=== PATIENT | female | born 1935 | race Caucasian/White ===

== ENCOUNTER → 2017-06-21 | Outpatient (CLI) | payer BC, MEDICARE ==
[~2017-06-21] MED LIST: ONGL5TAB PO; PANT40TA3 PO; PIOG15TA5 PO; PRAV20TA2 PO; VITA1000 PO; VITACAP7 PO
[2017-06-21 10:08] LABS: AUTOMATED NEUTROPHIL # 3.9 TH/MM3 (1.8-7.7); BASOPHIL % 0.5 % (0.0-2.0); EOSINOPHIL # 0.1 TH/MM3 (0-0.4); EOSINOPHIL % 1.3 % (0.0-4.0); HEMOGLOBIN 13.5 GM/DL (11.6-15.3); LYMPH % 26.7 % (9.0-44.0); LYMPHOCYTE # 1.6 TH/MM3 (1.0-4.8); MEAN CELL VOLUME 94.1 FL (80.0-100.0); MEAN CORPUSCULAR HEMOGLOBIN 31.8 PG (27.0-34.0); MEAN CORPUSCULAR HGB CONC 33.8 % (32.0-36.0); MEAN PLATELET VOLUME 8.8 FL (7.0-11.0); MONO % 7.5 % (0.0-8.0); MONOCYTE # 0.5 TH/MM3 (0-0.9); PLATELET COUNT 209 TH/MM3 (150-450); RED BLOOD COUNT 4.25 MIL/MM3 (4.00-5.30); WHITE BLOOD COUNT 6.1 TH/MM3 (4.0-11.0)
[2017-06-21 10:13] LABS: BILIRUBIN, URINE NEG (NEG); BLOOD, URINE NEG (NEG); GLUCOSE,URINE TRACE mg/dL (NEG); KETONE, URINE NEG (NEG); MUCUS URINE FEW /lpf (OCC); NITRITE,URINE NEG (NEG); SQUAMOUS EPITHELIAL CELL URINE 1 /hpf (0-5); URINE COLOR YELLOW (YELLW/STRAW); URINE LEUKOCYTE ESTERASE NEG (NEG)
[2017-06-21 10:16] LABS: PROTHROMBIN TIME - PATIENT 10.3 SEC (9.8-11.6)
[2017-06-21 10:29] LABS: WESTERGREN SEDIMENTATION RATE 10 mm/hr (0-30)
[2017-06-21 10:40] LABS: ALBUMIN 3.4 GM/DL (3.4-5.0); AST (GOT) 16 U/L (15-37); BICARBONATE 31.9 MEQ/L (21.0-32.0); BLOOD UREA NITROGEN 16 MG/DL (7-18); CALCIUM 8.9 MG/DL (8.5-10.1); CHLORIDE 105 MEQ/L (98-107); GLOMERULAR FILTRATION RATE 60 ML/MIN (>89); GLUCOSE,FASTING 205 MG/DL (74-99); SODIUM (NA) 143 MEQ/L (136-145)
[2017-06-21 10:43] LABS: ALKALINE PHOSPHATASE 78 U/L (45-117); ALT (GPT) 17 U/L (10-53); TOTAL BILIRUBIN ADULT 0.4 MG/DL (0.2-1.0); TOTAL PROTEIN 7.2 GM/DL (6.4-8.2)
--- NOTE | 2017-06-21 11:46 | RADRPT ---
EXAM DATE/TIME: 06/21/2017 11:21 [facility] COMPARISON: No previous studies available for comparison. INDICATIONS : Pre op right hip surgery. MEDICAL HISTORY : None. SURGICAL HISTORY : None. ENCOUNTER: Initial ACUITY: 1 day PAIN SCORE: 0/10 LOCATION: Bilateral chest FINDINGS: PA and lateral views of the chest demonstrate the lungs to be symmetrically aerated without evidence of mass, infiltrate or effusion. The cardiomediastinal contours are unremarkable. Degenerative merlos es are noted throughout the thoracic spine. CONCLUSION: 1. No acute cardiopulmonary disease. 2. Degenerative changes throughout the thoracic spine. Perfecto Escalona MD on June 21, 2017 at 11:42 Board Certified Radiologist. This report was verified electronically.
--- NOTE | 2017-06-21 13:35 | EKG ---
Date Performed: 06/21/2017 Time Performed: 09:36:35 PTAGE: 82 years EKG: Sinus rhythm MODERATE ST DEPRESSION ABNORMAL ECG NO PREVIOUS TRACING DOCTOR: Curt Bond Interpretating Date/Time 06/21/2017 13:34:39
== END ==
LOC: CPRE 09:09
PROVIDERS: ATTEND Orthopaedic Surgery Sports Medicine
DX: Z01.810 Encounter for preprocedural cardiovascular examination (principal); Z01.812 Encounter for preprocedural laboratory examination; Z01.818 Encounter for other preprocedural examination; M25.50 Pain in unspecified joint; M16.11 Unilateral primary osteoarthritis, right hip; R94.31 Abnormal electrocardiogram [ECG] [EKG]; Z96.60 Presence of unspecified orthopedic joint implant; Z79.01 Long term (current) use of anticoagulants
CPT/HCPCS: 36415; 71046; 80053; 81001; 85025; 85610; 85652; 85730; 93005

== ENCOUNTER 2017-07-08 06:44 | Inpatient (IN) | payer MEDICARE ==
[~2017-07-08] VITALS: Ht 167.6 cm; Wt 72.8 kg
[2017-07-08] MEDS ORDERED: ASPI81CH6 CHEW (06:52)
[2017-07-08] MEDS ORDERED: HYDR-3288 PO (06:52)
[2017-07-08] MEDS ORDERED: ACETAMINOPHEN/HYDROcodone 325 MG/10 MG TAB PO PRN (07:00)
[2017-07-08] MEDS ORDERED: diphenhydrAMINE HCL 50 MG/ML VIAL IV PUSH PRN (07:00)
[2017-07-08] MEDS ORDERED: MORPHINE SULFATE 4 MG/ML INJ IV PUSH PRN (07:00)
[2017-07-08] MEDS ORDERED: ZOLPIDEM TARTRATE 5 MG TAB PO PRN (07:00)
[2017-07-08] MEDS ORDERED: Post-op Orders (for Pharmacy) XX ONE (07:00)
[2017-07-08] MEDS ORDERED: SODIUM CHLORID 0.9% 500 ML IV PRN (07:45)
[2017-07-08] MEDS ORDERED: CHLORHEXIDINE GLUCONATE 4% SOLN 120 ML BTL TOPICAL SCH (07:45)
[2017-07-08] MEDS ORDERED: ceFAZolin 2 GM PREMIX 50 ML IV SCH (07:45)
[2017-07-08] MEDS ORDERED: LACTATED RINGER'S 1000 ML IV PRN (07:45)
[2017-07-08] MEDS ORDERED: TRANEXAMIC PERI-ARTICULAR 3,000 MG/NS 100 ML P-ARTICULR SCH ×2 (07:45)
[2017-07-08] MEDS ORDERED: SODIUM CHLORIDE 0.9% IV SCH (07:45)
[2017-07-08] MEDS ORDERED: POVIDONE IODINE 7.5% SCRUB 118 ML BOTTLE TOPICAL SCH (07:45)
[2017-07-08] MEDS ORDERED: EXPAREL PERI-ARTICULAR INJECTION (TOTAL VOL. 60 ML) P-ARTICULR SCH ×2 (07:45)
[2017-07-08] MEDS ORDERED: TRANEXAMIC ACID IV SCH (07:45)
[2017-07-08] MEDS ORDERED: DEXAMETHASONE SOD PHOS 20 MG/5 ML VIAL IV PUSH ONE (07:45)
[2017-07-08] MEDS ORDERED: VANCOMYCIN 1000 MG/NS 250 ML (for <70 kg) IV SCH ×2 (07:45)
[2017-07-08] MEDS ORDERED: METOPROLOL TARTRATE 25 MG TAB PO PRN (07:45)
[2017-07-08] MEDS ORDERED: CHLORHEXIDINE GLUCONATE 2 % 1 PACK (2 CLOTHS) TOPICAL PRN (07:45)
[2017-07-08] MEDS ORDERED: POVIDONE IODINE 5% (ANTISEPSIS KIT) 4 APPLICATIONS EACH NARE PRN (07:45)
--- NOTE | 2017-07-08 08:27 | PD.CONS ---
HPI Service [facility] Consult Requested By Reason for Consult medical management Primary Care Physician Tammy Walker DO Diagnoses: History of Present Illness patient is a 82 y/o female with history of osteoarthritis, diabetes mellitus and dyslipidemia who's been admitted for right total hip arthroplasty. at the time of my evaluation she was resting comfortably with no distress, pain or any other complaints. Review of Systems Constitutional: DENIES: Fever, Weight loss, Chills, Night Sweats Eyes: DENIES: Blurred vision, Diplopia, Vision loss, Double Vision Ears, nose, mouth, throat: DENIES: Tinnitus, Vertigo, Throat pain, Epistaxis Respiratory: DENIES: Apneas, Cough, Snoring, Wheezing, Hemoptysis, Sputum production, Shortness of breath Cardiovascular: DENIES: Chest pain, Palpitations, Syncope, Dyspnea on Exertion , PND, Lower Extremity Edema, Orthopnea, Claudication Gastrointestinal: DENIES: Abdominal pain, Black stools, Bloody stools, Constipation, Diarrhea, Nausea, Vomiting, Difficulty Swallowing, Anorexia Genitourinary: DENIES: Urinary frequency, Urgency, Hematuria, Dysuria Musculoskeletal: DENIES: Joint pain, Muscle aches, Stiffness, Joint Swelling Integumentary: DENIES: Rash Neurologic: DENIES: Abnormal gait, Headache, Localized weakness, Paresthesias, Seizures, Speech Problems, Tremor, Poor Balance Psychiatric: DENIES: Anxiety, Confusion, Mood changes, Depression, Hallucinations, Agitation, Suicidal Ideation, Homicidal Ideation, Delusions Past Family Social History Allergies: Coded Allergies: No Known Allergies (Unverified , 06/21/17) Past Medical History diabetes mellitus/ dyslipidemia/osteoarthritis Past Surgical History tonsillectomy/ knee replacement/ hysterectomy Reported Medications actos/Onglyza/pravastatin/aspirin/ cholecalciferol/protonix/norco Active Ordered Medications Inpatient Medications Acetaminophen/ Hydrocodone Bitart (Smith 10-325 Mg) 2 tab Q6H PRN PO PAIN SCALE 5 TO 10; Start 07/08/17 at 07:00 Bupivacaine Liposome 20 ml/ Sodium Chloride 60 ml @ 120 mls/hr ONCE P-ARTICULR ; Start 07/08/17 at 07:45; Stop 07/09/17 at 07:44 Cefazolin Sodium 1000 mg/Sodium Chloride 100 ml @ 200 mls/hr Q6H IV ; Start at 07:00; Stop 07/08/17 at 19:29; Status UNV Cefazolin Sodium/ Dextrose 50 ml @ 100 mls/hr FINAL INSPECTOR PAPER IV ; Start 07/08/17 at 07:45; Stop 07/11/17 at 07:44 Chlorhexidine Gluconate (Chlorhexidine 2% Cloth) 3 pack FINAL INSPECTOR PAPER PRN TOPICAL SEE LABEL COMMENTS; Start 07/08/17 at 07:45; Stop 07/11/17 at 07:44 Chlorhexidine Gluconate (Hibiclens 4% Top Soln) 1 applic ONCE TOPICAL ; Start at 07:45; Stop 07/11/17 at 07:44 Dexamethasone Sodium Phosphate (Decadron Inj) 10 mg ONCE ONCE IV PUSH ; Start 07/08/17 at 07:45; Stop 07/08/17 at 07:46; Status DC Diphenhydramine HCl (Benadryl Inj) 25 mg Q6H PRN IV PUSH ITCHING; Start at 07:00; Status UNV Docusate Sodium (Colace) 100 mg BID PO ; Start 07/09/17 at 21:00 Enoxaparin Sodium (Lovenox Inj) 40 mg Q24H SQ ; Start 07/08/17 at 07:00; Stop at 07:01; Status UNV Lactated Ringer's 1,000 ml @ 30 mls/hr Q24H PRN IV SEE LABEL COMMENTS; Start at 07:45; Stop 07/11/17 at 07:44 Metoprolol Tartrate (Lopressor) 25 mg FINAL INSPECTOR PAPER PRN PO SEE LABEL COMMENTS; Start 07/08/17 at 07:45; Stop 07/11/17 at 07:44 Miscellaneous Information (Misc Post-op Orders (for Pharmacy)) STAT ONCE XX ; Start 07/08/17 at 07:00; Stop 07/08/17 at 07:01; Status UNV Morphine Sulfate (Morphine Inj) 3 mg Q3H PRN IV PUSH Pain >7 when off TAG MARKER; Start 07/08/17 at 07:00 Multivitamins/ Minerals Therapeutic (Theragran M Tab) 1 tab BID PO ; Start 07/09 at 21:00; Stop 09/07/17 at 20:59 Non-Formulary Medication 5 mg DAILY PO ; Start 07/08/17 at 09:00; Status UNV Ondansetron HCl (Zofran Inj) 4 mg Q6H PRN IVP NAUSEA OR VOMITING; Start at 07:00 Pantoprazole Sodium (Protonix) 40 mg DAILY PO ; Start 07/08/17 at 09:00 Pioglitazone HCl (Actos) 15 mg DAILY PO ; Start 07/08/17 at 09:00 Povidone Iodine (Betadine 5% Antisepsis Kit) 1 applic FINAL INSPECTOR PAPER PRN EACH NARE SEE LABEL COMMENTS; Start 07/08/17 at 07:45; Stop 07/11/17 at 07:44 Povidone Iodine (Betadine 7.5% Scrub) 1 applic ONCE TOPICAL ; Start 07/08/17 at 07:45; Stop 07/11/17 at 07:44 Pravastatin Sodium (Pravachol) 20 mg DAILY PO ; Start 07/08/17 at 09:00 Sodium Chloride 500 ml @ 30 mls/hr [id number] PRN IV SEE LABEL COMMENTS; Start at 07:45; Stop 07/11/17 at 07:44 Tranexamic Acid 1092 mg/Sodium Chloride 110.92 ml @ 200 mls/ hr ONCE IV ; Start 07/08/17 at 07:45; Stop 07/09/17 at 07:44 Tranexamic Acid 3000 mg/Sodium Chloride 130 ml @ 260 mls/hr ONCE P-ARTICULR ; Start 07/08/17 at 07:45; Stop 07/09/17 at 07:44 Vancomycin HCl 1000 mg/Sodium Chloride 250 ml @ 250 mls/hr FINAL INSPECTOR PAPER IV ; Start 07/08/17 at 07:45; Stop 07/11/17 at 07:44 Zolpidem Tartrate (Ambien) 5 mg HS PRN PO SLEEP; Start 07/08/17 at 07:00 Family History not relevant to this consult. Social History doesn't smoke/ drinks occasionally. Physical Exam Vital Signs Vital Signs Date Time Temp Pulse Resp B/P (MAP) Pulse Ox O2 Delivery O2 Flow Rate FiO2 07/08/17 07:50 97.8 65 20 143/68 (93) 96 Physical Exam GENERAL: This is a well-nourished, well-developed patient, in no apparent distress. SKIN: No rashes, ecchymoses or lesions. Cool and dry. HEAD: Atraumatic. Normocephalic. No temporal or scalp tenderness. EYES: Pupils equal round and reactive. Extraocular motions intact. No scleral icterus. No injection or drainage. ENT: Nose without bleeding, purulent drainage or septal hematoma. Throat without erythema, tonsillar hypertrophy or exudate. Uvula midline. Airway patent. NECK: Trachea midline. No JVD or lymphadenopathy. Supple, nontender, no meningeal signs. CARDIOVASCULAR: Regular rate and rhythm without murmurs, gallops, or rubs. RESPIRATORY: Clear to auscultation. Breath sounds equal bilaterally. No wheezes , rales, or rhonchi. GASTROINTESTINAL: Abdomen soft, non-tender, nondistended. No hepato-splenomegaly , or palpable masses. No guarding. MUSCULOSKELETAL: Extremities without clubbing, cyanosis, or edema. No joint tenderness, effusion, or edema noted. No calf tenderness. Negative Homans sign bilaterally. NEUROLOGICAL: Awake and alert. Cranial nerves II through XII intact. Motor and sensory grossly within normal limits. Five out of 5 muscle strength in all muscle groups. Normal speech. Assessment and Plan Assessment and Plan A/P - osteoarthritis- plan for right total hip arthroplasty management per ortho. -diabetes mellitus; resumed home meds- accu-check with SSI -dyslipidemia; resumed statin -DVT prophylaxis- per ortho thank you for the consult. Discussed Condition With the patient. Raghu Lew MD July 08, 2017 08:27
[2017-07-08] MEDS ORDERED: ACETAMINOPHEN 1000 MG/100 ML 100 ML IV ONE (08:53)
[2017-07-08] MEDS ORDERED: PRAVASTATIN SOD 20 MG TAB PO SCH (09:00)
[2017-07-08] MEDS ORDERED: PIOGLITAZONE HCL 15 MG TAB PO SCH (09:00)
[2017-07-08] MEDS ORDERED: PANTOPRAZOLE SOD 40 MG DELAYED RELEASE TAB PO SCH (09:00)
[2017-07-08] MEDS ORDERED: GENTAMICIN SULFATE 80 MG/2 ML VIAL ONE (10:28)
[2017-07-08] MEDS ORDERED: DEXTROSE 50% IN WATER 50 ML VIAL(D50) IV PUSH PRN (10:45)
[2017-07-08] MEDS ORDERED: GLUCAGON 1 MG/ML VIAL OTHER PRN (10:45)
[2017-07-08] MEDS ORDERED: *morphine SULFATE 4 MG/ML PERIprocedure ONLY ONE ×2 (11:39→12:27)
[2017-07-08] MEDS: SODIUM CHLOR 0.9% 1000 ML INJ 1,000 ML IV SCH ×2 (11:50→16:14)
--- NOTE | 2017-07-08 11:56 | MP ---
cc: Sandeep Oswald MD DATE OF OPERATION: 07/08/2017 PREOPERATIVE DIAGNOSIS: Right hip osteoarthritis. POSTOPERATIVE DIAGNOSIS: Right hip osteoarthritis. PROCEDURE PERFORMED: Right total hip arthroplasty. SURGEON: Sandeep Oswald MD. NURSE MONITORING: SHARI Grimaldo. ANESTHESIA: General. ESTIMATED BLOOD LOSS: 200 mL. COMPLICATIONS: None. IMPLANTS USED: DePuy Corail size 12 press-fit standard offset femoral stem, size 52 Proctor Gription cup, 36 mm highly cross-linked polyethylene neutral liner, 36 mm cobalt chrome head, +1.5 neck. JUSTIFICATION: This patient is an 82-year-old female with a history of severe osteoarthritis involving the right hip. She has severe disabling pain with standing, walking, ambulation and weight-bearing activities. She has severe pain at rest. She has failed greater than 3 months of nonoperative conservative treatment to include medication therapy, injections, ambulatory assistive aids, home exercise program, activity modification, and weight loss. X-ray of the right hip reveal severe osteoarthrosis, [id number] joint space narrowing, subchondral sclerosis, subchondral cyst osteophyte formation with subluxation. The patient was counseled as to the risks, benefits and alternatives to a total hip arthroplasty. The risks were discussed, which include, but are not limited to anesthesia, bleeding, infection, damage to nerves or blood vessels, pain, stiffness, fracture dislocations, leg length discrepancy, blood clots, and even . The patient's pain is severe. She favored the benefits over the risks, she did wish to proceed with surgery. PROCEDURE IN DETAIL: Written consent was obtained. The patient was identified by name, taken to the operating room, placed supine on the operating table. General anesthesia was administered, as well as 2 grams of IV Ancef, and 1 gram of IV vancomycin. The right hip and right lower extremity were prepped and draped using Isuprel alcohol, Hibiclens solution and ChloraPrep solution. After a time-out was performed, a longitudinal incision was made over the anterolateral aspect of the right hip. The fascial layer was incised. Dissection was carried over the tensor fascia warner beneath the rectus femoris to allow exposure of the anterior hip capsulotomy. A capsulotomy incision was performed. An oscillating saw was used to perform a femoral neck cut, the osteoarthritic femoral head and neck component was removed. A #10 blade scalpel was used to excise the labrum. Sequential reaming began at size 49 and was carried through to a size 52. Subsequently, a Proctor Gription cup size 52 was then placed in approximately 45 degrees of abduction and 10 degrees of anteversion. There was excellent purchase and fixation of the insertion of the cup of the cup. A screw hole eliminator was placed, followed by the neutral polyethylene highly cross-linked 36 mm liner. The liner was impacted in place and tested for stability. Attention was turned to the femur where the leg was externally rotated, extended and adducted. The capsule was released off the undersurface of the greater trochanter to allow for elevation and lateralization of the femur. A box cutting osteotome was used to gain entry into the intramedullary canal of the femur. This was followed by canal finder, sequential broaching up to size 12. A calcar planer was used to plane the calcar. Trial head and neck combinations were evaluated and final components implanted with the current components. The leg could achieve external rotation to 70 degrees and extension all the way down to the ground without evidence of anterior instability or impingement. Fluoroscopic imaging showed appropriate implantation of components and soft tissue tension felt appropriate. The surgical wound was thoroughly irrigated with sterile saline, pulse lavage antibiotic impregnated solution. The fascial layer was closed with #1 Vicryl suture, subcuticular layer 2-0 Vicryl suture, skin was closed with Dermabond. Sterile dressing applied. The patient tolerated the procedure with no intraoperative complications noted. Alexander Sousa, Physician Inside Sales Professional, Certified, was present during the entire procedure to include patient positioning and the procedure itself. The medical necessity of a physician certified nursing assistant was indicated in this case due to the complexity of the procedure, he assisted with appropriate manipulation of the leg and also retraction of muscles, tendon, bone and neurovascular structures. He assisted with appropriate manipulation of bone and also implantation of the prosthetic replacement. MD SUBHASH Vidal/BONIFACIO , 11:18 AM , 11:56 AM
[2017-07-08] MEDS ORDERED: LACTATED RINGER'S 1000 ML INJ 1,000 ML IV ONE (12:00)
[2017-07-08] MEDS ORDERED: ePHEDrine/NS 25 MG/5 ML SYRINGE IV ONE (12:00)
[2017-07-08] MEDS ORDERED: NEOSTIGMINE 5 MG/5 ML SYRINGE IV PUSH ONE (12:00)
[2017-07-08] MEDS ORDERED: LIDOCAINE HCL 1% PF 5 ML SYRINGE OTHER ONE (12:00)
[2017-07-08] MEDS ORDERED: ROCURONIUM INJ 50 MG/5 ML SYRINGE IV PUSH ONE (12:00)
[2017-07-08] MEDS ORDERED: ONDANSETRON HCL 4 MG/2 ML VIAL IV ONE (12:00)
[2017-07-08] MEDS ORDERED: PROPOFOL 200 MG/20 ML AMP IV ONE (12:00)
[2017-07-08] MEDS ORDERED: GLYCOPYRROLATE 1 MG/5 ML SYRINGE IV PUSH ONE (12:00)
[2017-07-08] MEDS ORDERED: DO NOT ADM ANY ANTICOAGULANT DRUGS PRN (12:15)
--- NOTE | 2017-07-08 12:19 | RADRPT ---
EXAM DATE/TIME: 07/08/2017 23:44 [facility] COMPARISON: No previous studies available for comparison. INDICATIONS : Post op right hip MEDICAL HISTORY : None. SURGICAL HISTORY : total right hip ENCOUNTER: Initial ACUITY: 1 day PAIN SCORE: Non-responsive. LOCATION: Right hip FINDINGS: Examination of the right hip was performed with AP Pelvis. Postoperative right hip. Postsurgical willams ges. Moderate degenerative changes left hip. Osteitis pubis. CONCLUSION: Postoperative right hip Gurwinder Ely MD on July 08, 2017 at 12:16 Board Certified Radiologist. This report was verified electronically.
--- NOTE | 2017-07-08 12:28 | RADRPT ---
EXAM DATE/TIME: 07/08/2017 10:11 [facility] COMPARISON: HIP RIGHT (AP&LAT 2/3VWS) W AP PELVIS, July 08, 2017, 23:44. INDICATIONS : Right total hip replacement. Per Dr. Oswald, images adequate for doctor. MEDICAL HISTORY : None. SURGICAL HISTORY : None. ENCOUNTER: Initial ACUITY: 1 day PAIN SCORE: Non-responsive. LOCATION: Right Hip CONCLUSION: Fluoroscopic image during right hip arthroplasty. Gurwinder Ely MD on July 08, 2017 at 12:25 Board Certified Radiologist. This report was verified electronically.
[2017-07-08 13:05] VITALS: BP 118/54; PULSE 54; RESP 17; TEMP 97.3; O2SAT 99
--- NOTE | 2017-07-08 13:08 | HHI.DCPOC ---
Discharge Care Plan Diagnosis: (1) Primary localized osteoarthrosis, pelvic region and thigh Your Health Problems Are: Difficulty with ADL Goals to Promote Your Health * To prevent worsening of your condition and complications * To maintain your health at the optimal level Directions to Meet Your Goals Take your medications as prescribed Follow your dietary instruction Follow activity as directed Keep your appointments as scheduled Take your immunizations and boosters as scheduled If your symptoms worsen call your PCP, if no PCP go to Urgent Care Center or Emergency Room Smoking is Dangerous to Your Health. Avoid second hand smoke Call the 24-hour hour crisis hotline for domestic abuse at Sandeep Sousa July 08, 2017 13:08
--- NOTE | 2017-07-08 13:09 | HHI.FF ---
Face to Face Verification Diagnosis: (1) Primary localized osteoarthrosis, pelvic region and thigh Physical Therapy Gait training, Safety evaluation, Transfer training, bed to chair Hip: Total hip, Protocol: Right Right LE Weight Bearing: WB as tolerated Nursing Nursing: Dressing changes Dressing Changes: Daily dressing change I have seen patient Arely Monge on 07/08/17. My clinical findings support the need for the requested home health care services because: Limited ability to care for self High risk of falls I certify that my clinical findings support that this patient is homebound because: Post-op weakness Unsteady gait/balance Sandeep Sousa July 08, 2017 13:09
[2017-07-08] MEDS: ONDANSETRON HCL 4 MG/2 ML VIAL IVP PRN ×2 (13:29→22:27)
[2017-07-08] MEDS: INSULIN ASPART SUPPLEMENTAL SCALE SQ SCH ×3 (13:29→20:21)
[2017-07-08 16:21] VITALS: BP 114/57; PULSE 71; RESP 16; TEMP 98.2; O2SAT 99
[2017-07-08 19:41] VITALS: BP 110/59; PULSE 55; RESP 17; TEMP 97.6; O2SAT 98
[2017-07-08] MEDS: ACETAMINOPHEN/HYDROcodone 325 MG/10 MG TAB PO PRN (22:27)
[2017-07-08 22:53] VITALS: BP 105/52; PULSE 80; RESP 18; TEMP 96.7; O2SAT 98
[2017-07-09] MEDS: SODIUM CHLOR 0.9% 1000 ML INJ 1,000 ML IV SCH ×2 (03:00→13:00)
[2017-07-09 04:30] VITALS: BP 92/46; PULSE 61; RESP 17; TEMP 97.5; O2SAT 97
[2017-07-09 05:16] VITALS: BP 107/58
[2017-07-09 06:00] LABS: HEMATOCRIT 32.6 % (35.0-46.0); HEMOGLOBIN 10.9 GM/DL (11.6-15.3); MEAN CELL VOLUME 93.7 FL (80.0-100.0); MEAN CORPUSCULAR HEMOGLOBIN 31.4 PG (27.0-34.0); MEAN CORPUSCULAR HGB CONC 33.5 % (32.0-36.0); MEAN PLATELET VOLUME 8.9 FL (7.0-11.0); PLATELET COUNT 181 TH/MM3 (150-450); RED BLOOD COUNT 3.48 MIL/MM3 (4.00-5.30); WHITE BLOOD COUNT 13.2 TH/MM3 (4.0-11.0)
[2017-07-09 06:34] LABS: BICARBONATE 27.4 MEQ/L (21.0-32.0); CALCIUM 7.9 MG/DL (8.5-10.1); CREATININE 0.73 MG/DL (0.50-1.00)
[2017-07-09 08:00] VITALS: BP 101/53; PULSE 60; RESP 16; TEMP 97.5; O2SAT 99
[2017-07-09] MEDS: INSULIN ASPART SUPPLEMENTAL SCALE SQ SCH ×2 (08:00→11:47)
[2017-07-09] MEDS: ACETAMINOPHEN/HYDROcodone 325 MG/10 MG TAB PO PRN ×2 (08:07→12:28)
--- NOTE | 2017-07-09 08:13 | PD.ORT.PN ---
Subjective Post Op Day #: 1 Subjective Remarks pain under control. Objective Vitals Vital Signs Date Time Temp Pulse Resp B/P (MAP) Pulse Ox O2 Delivery O2 Flow Rate FiO2 07/09/17 05:16 107/58 (74) 07/09/17 04:30 97.5 61 17 92/46 (61) 97 07/08/17 22:53 96.7 80 18 105/52 (69) 98 07/08/17 19:41 97.6 55 17 110/59 (76) 98 07/08/17 16:21 98.2 71 16 114/57 (76) 99 07/08/17 13:05 97.3 54 17 118/54 (75) 99 07/08/17 12:47 98.5 55 17 121/57 (78) 99 Nasal Cannula 3 07/08/17 12:30 54 17 120/58 (78) 99 Nasal Cannula 3 07/08/17 12:15 54 16 134/58 (83) 99 Nasal Cannula 3 07/08/17 12:00 59 17 111/54 (73) 99 Nasal Cannula 3 07/08/17 11:45 69 17 118/58 (78) 99 Nasal Cannula 3 07/08/17 11:30 97.5 94 17 146/67 (93) 99 Nasal Cannula 3 I/O 07/08/17 07/08/17 07/08/17 07/09/17 07/09/17 07/09/17 07:00 15:00 23:00 07:00 15:00 23:00 Intake Total 1000 ml 580 ml 580 ml Output Total 200 ml 100 ml Balance 800 ml 480 ml 580 ml Intake Oral 480 ml 480 ml IV Total 100 ml 100 ml Other 1000 ml Output Emesis 100 ml Estimated Blood Loss 200 ml # Voids 2 3 # Bowel Movements 0 1 Result Diagram: 07/09/17 0415 07/09/17 0515 Objective Remarks in bed, nad dressing c/d/i neg Homans nvi thigh soft Assessment & Plan Ortho Post Op Day #: 1 Problem List: Assessment and Plan s/p R RADHA - anterior approach wbat ok to maintain dressing unless saturated lovenox - d/c on asa 82 d/c planning home with [facility] and pt - cleared today if does well in PT f/up dr. prather 2 weeks Sandeep Sousa July 09, 2017 08:13
[2017-07-09] MEDS ORDERED: SAXAGLIPTIN 5 MG PO SCH (09:00)
[2017-07-09] MEDS ORDERED: ENOXAPARIN SODIUM 40 MG/0.4 ML SYRINGE SQ SCH (11:00)
--- NOTE | 2017-07-09 11:18 | HHI.PR ---
Subjective Remarks Patient sitting up in chair, just finished physical therapy. Denies any pain. No chest pain or SOB Objective Vitals Vital Signs Date Time Temp Pulse Resp B/P (MAP) Pulse Ox O2 Delivery O2 Flow Rate FiO2 07/09/17 08:00 97.5 60 16 101/53 (69) 99 07/09/17 05:16 107/58 (74) 07/09/17 04:30 97.5 61 17 92/46 (61) 97 07/08/17 22:53 96.7 80 18 105/52 (69) 98 07/08/17 19:41 97.6 55 17 110/59 (76) 98 07/08/17 16:21 98.2 71 16 114/57 (76) 99 07/08/17 13:05 97.3 54 17 118/54 (75) 99 07/08/17 12:47 98.5 55 17 121/57 (78) 99 Nasal Cannula 3 07/08/17 12:30 54 17 120/58 (78) 99 Nasal Cannula 3 07/08/17 12:15 54 16 134/58 (83) 99 Nasal Cannula 3 07/08/17 12:00 59 17 111/54 (73) 99 Nasal Cannula 3 07/08/17 11:45 69 17 118/58 (78) 99 Nasal Cannula 3 07/08/17 11:30 97.5 94 17 146/67 (93) 99 Nasal Cannula 3 I/O 07/08/17 07/08/17 07/08/17 07/09/17 07/09/17 07/09/17 06:59 14:59 22:59 06:59 14:59 22:59 Intake Total 1000 ml 480 ml 680 ml Output Total 200 ml 100 ml Balance 800 ml 380 ml 680 ml Intake Oral 480 ml 480 ml IV Total 200 ml Other 1000 ml Output Emesis 100 ml Estimated Blood Loss 200 ml # Voids 2 3 # Bowel Movements 0 1 Result Diagram: 07/09/17 0415 07/09/17 0515 Objective Remarks SKIN: Warm and dry. dressing dry and intact HEAD: Atraumatic. Normocephalic. EYES: Pupils equal and round. CARDIOVASCULAR: Regular rate and rhythm. RESPIRATORY: No accessory muscle use. Clear to auscultation. Breath sounds equal bilaterally. GASTROINTESTINAL: Abdomen soft, non-tender, nondistended. Hepatic and splenic margins not palpable. MUSCULOSKELETAL: Extremities without clubbing, cyanosis, or edema. No obvious deformities. NEUROLOGICAL: Awake and alert. Normal speech. PSYCHIATRIC: Appropriate mood and affect; insight and judgment normal. A/P Assessment and Plan osteoarthritis- s/p right total hip arthroplasty management per ortho. diabetes mellitus; resumed home meds- accu-check with SSI dyslipidemia: Cont statin DVT prophylaxis- per ortho Hospitalist clear for discharge Discharge Planning per ortho Rosalba Santiago July 09, 2017 11:18
[2017-07-09 12:00] VITALS: BP 94/52; PULSE 62; RESP 16; TEMP 97.4; O2SAT 99
[2017-07-09] MEDS ORDERED: DOCUSATE SODIUM 100 MG CAP PO SCH (21:00)
[2017-07-09] MEDS ORDERED: MULTIVITAMINS/MINERALS THERAPEUTIC TAB PO SCH (21:00)
== END 2017-07-09 13:58 | disposition home health service (06) | DRG 470 ==
LOC: HSDI 06:44 → N06B 12:58
PROVIDERS: ADMIT Orthopaedic Surgery Sports Medicine; ATTEND Orthopaedic Surgery Sports Medicine
PROC: 0SR902A Replacement of Right Hip Joint with Metal on Polyethylene Synthetic Substitute, Uncemented, Open Approach (ICD-10-PCS; principal; 2017-07-08 09:35)
DX: M16.11 Unilateral primary osteoarthritis, right hip (principal); E11.9 Type 2 diabetes mellitus without complications; M24.851 Other specific joint derangements of right hip, not elsewhere classified; M25.751 Osteophyte, right hip; E78.5 Hyperlipidemia, unspecified; Z79.84 Long term (current) use of oral hypoglycemic drugs
CPT/HCPCS: 73502; 76000; 80048; 82948; 85027; 86850; 86900; 86901; 94150; C1776; J0131; J0690; J1100; J1580; J1650; J1815; J2270; J2405; J2710; J3010; J3370; J7030; J7050; J7120